=== PATIENT | female | born 1955 | race Caucasian/White ===

== ENCOUNTER → 2016-11-01 | Outpatient (CLI) | payer BC ==
--- NOTE | 2016-11-01 12:16 | BD ---
EXAMINATION TYPE: MG DEXA axial skeleton. DATE OF EXAM: 11/01/2016 CLINICAL HISTORY: Osteoporosis. Postmenopausal state. Family history of osteoporosis. Height: 61.25 Weight: 129 FRAX RISK QUESTIONS: Alcohol (3 or more units per day): no Family History (Parent hip fracture): no Glucocorticoids (More than 3mos): no (Ex: prednisone, prednisolone, methylprednisolone, dexamethasone, and hydrocortisone). History of Fracture in Adulthood: no Secondary Osteoporosis: 1. Type 1 Diabetes: no 2. Hyperthyroidism: no 3. Menopause before 45: yes 4. Malnutrition: no 5. Chronic liver disease: no Rheumatoid Arthritis: no Current Tobacco Use: no RISK FACTORS HISTORY OF: Family History of Osteoporosis: no, osteopenia Active: yes Diet low in dairy products/other sources of calcium: at least one serving a day Postmenopausal woman: yes Take estrogen and/or progesterone medications: not now How long: hormonal contraceptives for about 3 years when younger, estrogen about 2 years Lost more than 2 inches in height since high school: no Frequent falls: no Poor Health: no Hyperparathyroidism: no Adrenal Insufficiency: no MEDICATIONS: Prednisone or other steroids: no Thyroid Medications: yes Which medication: Levothyroxine How Long: about 10 years Osteoporosis Medications: not now Which medication: Fosamax How Long: briefly years ago Additional Medications: cholesterol meds EXAM MEASUREMENTS: Bone mineral densitometry was performed using the [employer] System. Bone mineral density as measured about the Lumbar spine is: ----- L1-L4(G/cm2): 0.936 T Score Values are as follows: ----- L2: -2.6 ----- L3: -1.0 ----- L4: -2.7 ----- L1-L4: -2.0 Bone mineral density has: Decreased -6.5% since study of: 04/07/2009 Bone mineral density about the R hip (g/cm2): 0.756 Bone mineral density about the L hip (g/cm2): 0.778 T Score values are as follows: -----R Neck: -2.0 -----L Neck: -1.9 -----R Total: -1.7 -----L Total: -1.6 Bone mineral density has: Decreased -0.6% since study of: 04/07/2009 IMPRESSION: Osteopenia (T Score between -2.5 and -1) as noted by T score values There is slightly increased risk of fracture and the patient may be considered for treatment. Re-Screen 2-5 years. NOTE: T-SCORE=SD OF THE YOUNG ADULT MEAN.
--- NOTE | 2016-11-03 08:38 | MM ---
Reason for exam: screening (asymptomatic). Last mammogram was performed 1 year ago. History: Patient is postmenopausal. Family history of breast cancer in mother at age 61. Benign excisional biopsy of the right breast. Took hormonal contraceptives for 3 years. Took estrogen for 2 years beginning at age 42. Took progesterone for 2 years beginning at age 42. Physical Findings: A clinical breast exam by your physician is recommended on an annual basis and results should be correlated with mammographic findings. MG 3D Screening Mammo W/Cad Bilateral CC and MLO view(s) were taken. Prior study comparison: October 30, 2015, bilateral MG 3d screening mammo w/cad. October 28, 2014, bilateral MG diagnostic mammo w CAD [facility]. There are scattered fibroglandular densities. No significant changes when compared with prior studies. ASSESSMENT: Benign, BI-RAD 2 RECOMMENDATION: Routine screening mammogram of both breasts in 1 year.
== END | disposition home or self-care (01) ==
LOC: RADMAMWWP 09:18
PROVIDERS: ATTEND Internal Medicine Geriatric Medicine
DX: Z12.31 Encounter for screening mammogram for malignant neoplasm of breast (principal); M85.80 Other specified disorders of bone density and structure, unspecified site
CPT/HCPCS: 77080; 77063; G0202

== ENCOUNTER → 2017-11-10 | Outpatient (CLI) | payer BC ==
--- NOTE | 2017-11-11 14:36 | MM ---
Reason for exam: screening (asymptomatic). Last mammogram was performed 1 year ago. History: Patient is postmenopausal. Family history of breast cancer in mother at age 61. Benign excisional biopsy of the right breast. Took hormonal contraceptives for 3 years. Took estrogen for 2 years beginning at age 42. Took progesterone for 2 years beginning at age 42. Physical Findings: A clinical breast exam by your physician is recommended on an annual basis and results should be correlated with mammographic findings. MG 3D Screening Mammo W/Cad Bilateral CC and MLO view(s) were taken. Prior study comparison: November 01, 2016, bilateral MG 3d screening mammo w/cad. October 30, 2015, bilateral MG 3d screening mammo w/cad. There are scattered fibroglandular densities. There is chronic nodularity in the left breast. No significant changes when compared with prior studies. ASSESSMENT: Negative, BI-RAD 1 RECOMMENDATION: Routine screening mammogram of both breasts in 1 year.
== END | disposition home or self-care (01) ==
LOC: RADMAMWWP 07:47
PROVIDERS: ATTEND Internal Medicine Geriatric Medicine
DX: Z12.31 Encounter for screening mammogram for malignant neoplasm of breast (principal)
CPT/HCPCS: 77063; 77067

== ENCOUNTER → 2018-12-12 | Outpatient (CLI) | payer BC ==
--- NOTE | 2018-12-14 14:26 | MM ---
Reason for exam: screening (asymptomatic). Last mammogram was performed 1 year and 1 month ago. History: Patient is postmenopausal. Family history of breast cancer in mother at age 61. Benign excisional biopsy of the right breast. Took hormonal contraceptives for 3 years. Took estrogen for 2 years beginning at age 42. Took progesterone for 2 years beginning at age 42. Physical Findings: A clinical breast exam by your physician is recommended on an annual basis and results should be correlated with mammographic findings. MG 3D Screening Mammo W/Cad Bilateral CC and MLO view(s) were taken. Prior study comparison: November 10, 2017, bilateral MG 3d screening mammo w/cad. November 01, 2016, bilateral MG 3d screening mammo w/cad. The breast tissue is heterogeneously dense. This may lower the sensitivity of mammography. There is a stable oval, circumscribed left upper inner quadrant middle depth mass back to 2014. No suspicious abnormality. Chronic right nipple retraction. No significant changes when compared with prior studies. ASSESSMENT: Benign, BI-RAD 2 RECOMMENDATION: Routine screening mammogram of both breasts in 1 year.
== END | disposition home or self-care (01) ==
LOC: RADMAMWWP 07:53
PROVIDERS: ATTEND Internal Medicine Geriatric Medicine
DX: Z12.31 Encounter for screening mammogram for malignant neoplasm of breast (principal)
CPT/HCPCS: 77063; 77067

== ENCOUNTER → 2019-12-19 | Outpatient (CLI) | payer BC ==
--- NOTE | 2019-12-21 14:02 | MM ---
Reason for exam: screening (asymptomatic). Last mammogram was performed 1 year ago. History: Patient is postmenopausal. Family history of breast cancer in mother at age 61. Benign excisional biopsy of the right breast. Took hormonal contraceptives for 3 years. Took estrogen for 2 years beginning at age 42. Took progesterone for 2 years beginning at age 42. Physical Findings: A clinical breast exam by your physician is recommended on an annual basis and results should be correlated with mammographic findings. MG 3D Screening Mammo W/Cad Bilateral CC and MLO view(s) were taken. Prior study comparison: December 12, 2018, bilateral MG 3d screening mammo w/cad. November 10, 2017, bilateral MG 3d screening mammo w/cad. There are scattered fibroglandular densities. No significant changes when compared with prior studies. ASSESSMENT: Benign, BI-RAD 2 RECOMMENDATION: Routine screening mammogram of both breasts in 1 year.
== END | disposition home or self-care (01) ==
LOC: RADMAMWWP 07:52
PROVIDERS: ATTEND Internal Medicine Geriatric Medicine
DX: Z12.31 Encounter for screening mammogram for malignant neoplasm of breast (principal)
CPT/HCPCS: 77063; 77067

== ENCOUNTER → 2020-12-19 | Outpatient (CLI) | payer BC ==
--- NOTE | 2020-12-22 10:44 | MM ---
Reason for exam: screening (asymptomatic). Last mammogram was performed 1 year ago. History: Patient is postmenopausal. Family history of breast cancer in mother at age 61. Benign excisional biopsy of the right breast. Took hormonal contraceptives for 3 years. Took estrogen for 2 years beginning at age 42. Took progesterone for 2 years beginning at age 42. Physical Findings: A clinical breast exam by your physician is recommended on an annual basis and results should be correlated with mammographic findings. MG 3D Screening Mammo W/Cad Bilateral CC and MLO view(s) were taken. Prior study comparison: December 19, 2019, bilateral MG 3d screening mammo w/cad. December 12, 2018, bilateral MG 3d screening mammo w/cad. There are scattered fibroglandular densities. There is no discrete abnormality. No significant changes when compared with prior studies. ASSESSMENT: Negative, BI-RAD 1 RECOMMENDATION: Routine screening mammogram of both breasts in 1 year.
== END | disposition home or self-care (01) ==
LOC: RADMAMWWP 07:31
PROVIDERS: ATTEND Internal Medicine Geriatric Medicine
DX: Z12.31 Encounter for screening mammogram for malignant neoplasm of breast (principal)
CPT/HCPCS: 77063; 77067

== ENCOUNTER → 2021-12-22 | Outpatient (CLI) | payer BC ==
--- NOTE | 2021-12-23 18:59 | MM ---
Reason for Exam: Screening (asymptomatic). Last screening mammogram was performed 12 month(s) ago. Patient History: Menarche at age 17. First Full-Term at age 25. Postmenopausal. Estrogen for 2 years from age 42 until age 45. Progesterone for 2 years from age 42 until age 45. Patient used Hormonal Contraceptives for 3 years. Benign Excisional Biopsy on the right side. Mother had breast cancer, age 61. Risk Values: Dina 5 year model risk: 3.3%. NCI Lifetime model risk: 12.9%. Prior Study Comparison: 12/12/2018 Bilateral Screening Mammogram, [facility]. 12/19/2019 Bilateral Screening Mammogram, [facility]. 12/19/2020 Bilateral Screening Mammogram, [facility]. Tissue Density: There are scattered fibroglandular densities. Findings: Analyzed By CAD. Unchanged asymmetric density far posterior lateral view. There is no suspicious group of microcalcifications or new suspicious mass in either breast. Overall Assessment: Benign, BI-RAD 2 Management: Screening Mammogram of both breasts in 1 year. 1. Patient should continue monthly self breast exams. 2. A clinical breast exam by your physician is recommended on an annual basis. 3. This exam should not preclude additional follow-up of suspicious palpable abnormalities. Electronically signed and approved by: Rojelio Max M.D. Radiologist
== END | disposition home or self-care (01) ==
LOC: RADMAMWWP 15:49
PROVIDERS: ATTEND Internal Medicine Geriatric Medicine
DX: Z12.31 Encounter for screening mammogram for malignant neoplasm of breast (principal); Z78.0 Asymptomatic menopausal state; Z80.3 Family history of malignant neoplasm of breast
CPT/HCPCS: 77063; 77067

== ENCOUNTER → 2022-06-09 | Outpatient (CLI) | payer MEDICARE, BC ==
--- NOTE | 2022-06-09 09:27 | XR ---
EXAMINATION TYPE: XR ribs RT w pa chest xray DATE OF EXAM: 06/09/2022 COMPARISON: NONE TECHNIQUE: Oral view the chest and 4 views of the right ribs submitted. HISTORY: Pain FINDINGS: The lungs are clear and there is no pneumothorax, pleural effusion, or focal pneumonia. Heart size normal and no overt failure. Osseous structures demonstrate hypertrophic and degenerative changes of the spine. Surgical clips in the gallbladder fossa. Hypertrophic spurring AC joint. IMPRESSION: 1. No acute displaced rib fracture. 2. AC joint arthropathy.
== END | disposition home or self-care (01) ==
LOC: RADXRMAIN 08:50
PROVIDERS: ATTEND Internal Medicine Geriatric Medicine
DX: R07.82 Intercostal pain (principal); M19.011 Primary osteoarthritis, right shoulder

== ENCOUNTER → 2022-06-28 | Outpatient (CLI) | payer MEDICARE, BC ==
--- NOTE | 2022-06-28 14:39 | BD ---
EXAMINATION TYPE: Axial Bone Density DATE OF EXAM: 06/28/2022 CLINICAL HISTORY: 67 years old Female. ICD-10 CODE: M81.0 OSTEOPOROSIS Comparison: Prior DEXA bone scan 2016 FRAX RISK QUESTIONS: Alcohol (3 or more units per day): no Family History (Parent hip fracture): no Glucocorticoids (More than 3mos): no History of Fracture in Adulthood: no Secondary Osteoporosis: 1. Type 1 Diabetes: no 2. Hyperthyroidism: no 3. Menopause before 45: yes 4. Malnutrition: no 5. Chronic liver disease: no Rheumatoid Arthritis: no Current Tobacco Use: no RISK FACTORS HISTORY OF: Hip Fracture (Right/Left): no Spine Fracture: no History of Wrist Fracture: no Surgery to Spine/Hip(right/left)/Wrist (right/left): no Family History of Osteoporosis: mother Active: yes Diet low in dairy products/other sources of calcium: yes Postmenopausal woman: yes Take estrogen and/or progesterone medications: no Lost more than 2 inches in height since high school: no Frequent falls: no Poor Health: no Hyperparathyroidism: no Adrenal Insufficiency: no MEDICATIONS: Prednisone or other steroids: no Thyroid Medications: Levothyroxin How Long: past 10 years Osteoporosis Medications: calcitonin salmon nasal spray daily past 5 years Additional Medications: Anxiety meds, cholesterol meds, reflux meds, zinc, magnesium, Additional History: EXAM MEASUREMENTS: Bone mineral densitometry was performed using the [employer]. Bone mineral density as measured about the Lumbar spine is: ----- L1-L4(G/cm2): 0.966 T Score Values are as follows: ----- L1: -1.7 ----- L2: -1.9 ----- L3: -1.4 ----- L4: -2.2 ----- L1-L4: -1.8 Z Score Values are as follows: ----- L1: 0.3 ----- L2: 0.0 ----- L3: 0.6 ----- L4: -0.3 ----- L1-L4: 0.1 Bone mineral density has: increased 3.2 % since study of: 11/01/2016 Bone mineral density about the R hip (g/cm2): 0.788 Bone mineral density about the L hip (g/cm2): 0.797 T Score values are as follows: -----R Neck: -1.8 -----L Neck: -1.8 -----R Total: -1.7 -----L Total: -1.7 Z Score values are as follows: -----R Neck: -0.1 -----L Neck: -0.1 -----R Total: -0.3 -----L Total: -0.2 Bone mineral density has: decreased -0.8 % since study of: 11/01/2016 FRAX%s: The graph provided illustrates a 9.8% chance for a major osteoporotic fx and a 1.4% chance fo r the hips probability for fx in 10 years time. IMPRESSION: Osteopenia (T Score between -2.5 and -1) remains present. There is slightly increased risk of fracture and the patient may be considered for treatment. Re-Screen 2-5 years. NOTE: T-SCORE=SD OF THE YOUNG ADULT MEAN.
== END | disposition home or self-care (01) ==
LOC: RADBDWWP 13:03
PROVIDERS: ATTEND Internal Medicine Geriatric Medicine
DX: M81.0 Age-related osteoporosis without current pathological fracture (principal); M85.89 Other specified disorders of bone density and structure, multiple sites
CPT/HCPCS: 77080

== ENCOUNTER → 2022-12-23 | Outpatient (CLI) | payer MEDICARE, BC ==
--- NOTE | 2022-12-24 11:43 | MM ---
Reason for Exam: Screening (asymptomatic). Last screening mammogram was performed 12 month(s) ago. Patient History: Menarche at age 17. First Full-Term at age 25. Postmenopausal. Estrogen for 2 years from age 42 until age 45. Progesterone for 2 years from age 42 until age 45. Patient used Hormonal Contraceptives for 3 years. Benign Excisional Biopsy on the right side. Mother had breast cancer, age 61. Risk Values: Dina 5 year model risk: 3.4%. NCI Lifetime model risk: 12.5%. Prior Study Comparison: 12/19/2019 Bilateral Screening Mammogram, [facility]. 12/19/2020 Bilateral Screening Mammogram, [facility]. 12/22/2021 Bilateral MG 3D screening mammo w/cad, [facility]. Tissue Density: There are scattered fibroglandular densities. Findings: Analyzed By CAD. There is no suspicious group of microcalcifications or new suspicious mass in either breast. Overall Assessment: Negative, BI-RAD 1 Management: Screening Mammogram of both breasts in 1 year. . Patient should continue monthly self-breast exams. A clinical breast exam by your physician is recommended on an annual basis. This exam should not preclude additional follow-up of suspicious palpable abnormalities. Note on Dina scores and lifetime risk: 1. A Dina score greater than 3% is considered moderate risk. If this is the case, consider specialist referral to assess eligibility for a risk reducing agent. 2. If overall lifetime risk for the development of breast cancer is 20% or higher, the patient may qualify for future screening with alternating mammogram and breast MRI. Electronically signed and approved by: Gregory Lovett M.D. Radiologis
== END | disposition home or self-care (01) ==
LOC: RADMAMWWP 07:56
PROVIDERS: ATTEND Internal Medicine Geriatric Medicine
DX: Z12.31 Encounter for screening mammogram for malignant neoplasm of breast (principal); Z78.0 Asymptomatic menopausal state; Z80.3 Family history of malignant neoplasm of breast
CPT/HCPCS: 77063; 77067

== ENCOUNTER → 2023-12-26 | Outpatient (CLI) | payer MEDICARE, BC ==
--- NOTE | 2023-12-27 19:05 | MM ---
Reason for Exam: Screening (asymptomatic). Last screening mammogram was performed 12 month(s) ago. Patient History: Menarche at age 17. First Full-Term at age 25. Postmenopausal. Estrogen for 2 years from age 42 until age 45. Progesterone for 2 years from age 42 until age 45. Patient used Hormonal Contraceptives for 3 years. Benign Excisional Biopsy on the right side. Mother had breast cancer, age 61. Risk Values: Dina 5 year model risk: 3.4%. NCI Lifetime model risk: 12.1%. Prior Study Comparison: 12/19/2020 Bilateral Screening Mammogram, [facility]. 12/22/2021 Bilateral MG 3D screening mammo w/cad, [facility]. 12/23/2022 Bilateral MG 3D screening mammo w/cad, [facility]. Tissue Density: There are scattered areas of fibroglandular density. Findings: Analyzed By CAD. Unchanged subareolar asymmetric density on the right. There is no suspicious group of microcalcifications or new suspicious mass in either breast. Overall Assessment: Benign, BI-RAD 2 Management: Screening Mammogram of both breasts in 1 year. See note below in regards to the patient's increased 5 year Dina score. Patient should continue monthly self-breast exams. A clinical breast exam by your physician is recommended on an annual basis. This exam should not preclude additional follow-up of suspicious palpable abnormalities. Note on Dina scores and lifetime risk: 1. A Dina score greater than 3% is considered moderate risk. If this is the case, consider specialist referral to assess eligibility for a risk reducing agent. 2. If overall lifetime risk for the development of breast cancer is 20% or higher, the patient may qualify for future screening with alternating mammogram and breast MRI. [facility], , 12/27/2023 7:02 PM. Electronically signed and approved by: Rojelio Max M.D. Radiologist
== END | disposition home or self-care (01) ==
LOC: RADMAMWWP 08:43
PROVIDERS: ATTEND Internal Medicine Geriatric Medicine
DX: Z12.31 Encounter for screening mammogram for malignant neoplasm of breast
CPT/HCPCS: 77063; 77067